=== PATIENT | male | born 1970 | race African-American/Black ===

== ENCOUNTER 2016-12-02 14:40 | Emergency (ER) | payer OTHER ==
[2016-12-02 14:46] VITALS: BP 156/67; PULSE 101; TEMP 98.6; BMI 21.1
--- NOTE | 2016-12-02 15:47 | PDOC ---
History of Present Illness - General Chief Complaint: Injury Stated Complaint: L LLEG/HIP PAIN Time Seen by Provider: 12/02/16 15:20 History Source: Patient Exam Limitations: No Limitations - History of Present Illness Initial Comments: 12/02/16 15:51 states fell 3 days ago while intoxicated - to the left side ontp hip and knee. C /O pain that is worsening causing unable to walk. Was seen at [facility] but no test were taken and only given an "aspirin" for pain. Denies head injury, denies back injury. Has no previous injuries. States is progressively become worse denies problems with bowel or bladder. Patient is homeless and is unable to obtain any pain medication including Tylenol or Motrin. 12/02/16 21:47 Occurred: reports: other (3 days) Severity: reports: moderate Pain Location: reports: lower extremity (/ pelvis) Modifying Factors: improves with: None Loss of Consciousness: no loss of consciousness Associated Symptoms (Fall): denies symptoms Past History - Travel Traveled outside of the country in the last 30 days: No Close contact w/someone who was outside of country & ill: No - Past Medical History Allergies/Adverse Reactions: Allergies Allergy/AdvReac Type Severity Reaction Status Date / Time No Known Allergies Allergy Verified 12/02/16 14:42 - Psycho/Social/Smoking Cessation Hx Suicidal Ideation: No Smoking History: Never smoked Number of Cigarettes Smoked Daily: 2 Information on smoking cessation initiated: No Hx Alcohol Use: Yes Drug/Substance Use Hx: No Trauma Specific PMHX - Complaint Specific PMHX Back Injury: No Neck Injury: No Review of Systems - Review of Systems Able to Perform ROS?: Yes Is the patient limited Estonian proficient: Yes Constitutional: Yes: See HPI, Malaise. No: Symptoms Reported, Fever HEENTM: Yes: See HPI. No: Symptoms Reported Respiratory: No: Symptoms reported Cardiac (ROS): No: Symptoms Reported Musculoskeletal: Yes: Symptoms Reported, See HPI, Joint Pain (left leg./hip), Joint Swelling, Joint Stiffness All Other Systems: Reviewed and Negative *Physical Exam - Vital Signs Last Vital Signs Temp Pulse Resp BP Pulse Ox 98.6 F 101 H 20 156/67 12/02/16 14:42 12/02/16 14:42 12/02/16 14:42 12/02/16 14:42 - Physical Exam General Appearance: Yes: Nourished, Appropriately Dressed, Apparent Distress ( unable to bear weight on left leg ), Disheveled HEENT: positive: GRACE, Normal ENT Inspection, TMs Normal, Pharynx Normal Neck: positive: Supple. negative: Tender Respiratory/Chest: positive: Lungs Clear Musculoskeletal: positive: Decreased Range of Motion, Other (ROM limited to abduction/forwad flexion due to severe pain to left upper femur). negative: Normal Inspection, CVA Tenderness, Muscle Spasm, Vertebral Tenderness Extremity: positive: Tender (2 greater trochanter of the left hip, with no obvious bruising, deformity,. Also complains of pain to his left knee although no reproduced tenderness to medial lateral aspect of this or step-offs, negative ballottement), Pelvis Stable, Other (venous stasis bilaterally ). negative: Normal Capillary Refill (sluggish ), Normal Inspection, Normal Range of Motion Integumentary: positive: Warm, Pale Neurologic: positive: compounding scaler II-XII NML intact, Fully Oriented, Alert, Normal Mood/ Affect, Normal Response, Motor Strength 5/5 Progress Note - Progress Note Progress Note: fall with hip contusion, no fx/ dx in xray- will treat with NSAIDS/ rest *DC/Admit/Observation/Transfer Diagnosis at time of Disposition: Contusion of hip, left Qualifiers: Encounter type: initial encounter Qualified Code(s): S70.02XA - Contusion of left hip, initial encounter - Discharge Dispostion Disposition: HOME Condition at time of disposition: Stable Admit: No - Patient Instructions Printed Discharge Instructions: Contusion Additional Instructions: Rest, ice to area on and off for 15 minutes 4-6 times a day Avoid heavy lifting or exercise until pain and swelling is resolved or until further directed Keep area highly elevated to reduce swelling Use splints/Valente wrap as directed Followup with orthopedist in one to 2 days if not improving, if significantly improved may wait one week for followup with orthopedist May use ibuprofen 2-200 mg tablets every 6 hours as needed for pain
[2016-12-02] MEDS ORDERED: IBUPROFEN 600 MG TABLET (FP) PO ONE ×2 (16:38→16:52)
== END 2016-12-02 16:53 | disposition home or self-care (01) ==
LOC: JERFT 14:40
DX: S70.02XA Contusion of left hip, initial encounter (principal); W19.XXXA Unspecified fall, initial encounter; Y93.89 Activity, other specified; Y92.89 Other specified places as the place of occurrence of the external cause; Y99.9 Unspecified external cause status
CPT/HCPCS: 73523-TC; 73562-TC-LT; 99281-25

== ENCOUNTER 2019-09-19 22:08 | Emergency (ER) | payer SELFPAY ==
[2019-09-19 22:20] VITALS: BMI 21.1
--- NOTE | 2019-09-19 23:02 | PDOC ---
History of Present Illness - General Chief Complaint: Alcohol intoxication Stated Complaint: INTOX Time Seen by Provider: 09/19/19 23:02 - History of Present Illness Initial Comments: 09/19/19 23:02 Mr. Mari is a 48 yo male w/ no significant pmh who presents for evaluation after being picked up by EMS for intoxication. Patient reports he has no complaints at this time. The patient denies chest pain, shortness of breath, headache and dizziness. Denies fever, chills, nausea, vomit, diarrhea and constipation. Denies dysuria, frequency, urgency and hematuria. Past History - Past Medical History Allergies/Adverse Reactions: Allergies Allergy/AdvReac Type Severity Reaction Status Date / Time No Known Allergies Allergy Verified 09/19/19 22:14 Home Medications: Ambulatory Orders NK [No Known Home Medication] 09/19/19 COPD: No - Psycho Social/Smoking Cessation Hx Smoking History: Current every day smoker Have you smoked in the past 12 months: Yes Number of Cigarettes Smoked Daily: 3 Information on smoking cessation initiated: No Hx Alcohol Use: Yes Drug/Substance Use Hx: Yes Review of Systems - Review of Systems Comments:: 09/19/19 23:02 GENERAL/CONSTITUTIONAL: No fever or chills. No weakness. HEAD, EYES, EARS, NOSE AND THROAT: No change in vision. No ear pain or discharge. No sore throat. CARDIOVASCULAR: No chest pain or shortness of breath RESPIRATORY: No cough, wheezing, or hemoptysis. GASTROINTESTINAL: No nausea, vomiting, diarrhea or constipation. GENITOURINARY: No dysuria, frequency, or change in urination. MUSCULOSKELETAL: No joint or muscle swelling or pain. No neck or back pain. SKIN: No rash NEUROLOGIC: No headache, vertigo, loss of consciousness, or change in strength/ sensation. ENDOCRINE: No increased thirst. No abnormal weight change HEMATOLOGIC/LYMPHATIC: No anemia, easy bleeding, or history of blood clots. ALLERGIC/IMMUNOLOGIC: No hives or skin allergy. *Physical Exam - Vital Signs Last Vital Signs Temp Pulse Resp BP Pulse Ox 98.2 F 92 H 18 91/56 L 100 09/19/19 22:10 09/19/19 22:10 09/19/19 22:10 09/19/19 22:10 09/19/19 22:10 - Physical Exam Comments: 09/19/19 23:02 GENERAL: Awake, alert, and fully oriented, in no acute distress HEAD: No signs of trauma, normocephalic, atraumatic EYES: PERRLA, EOMI, sclera anicteric, conjunctiva clear ENT: Auricles normal inspection, hearing grossly normal, nares patent, oropharynx clear without exudates. Moist mucosa NECK: Normal ROM, supple, no lymphadenopathy, JVD, or masses LUNGS: No distress, speaks full sentences, clear to auscultation bilaterally HEART: Regular rate and rhythm, normal S1 and S2, no murmurs, rubs or gallops, peripheral pulses normal and equal bilaterally. ABDOMEN: Soft, nontender, normoactive bowel sounds. No guarding, no rebound. No masses EXTREMITIES: Normal inspection, Normal range of motion, no edema. No clubbing or cyanosis. NEUROLOGICAL: Cranial nerves II through XII grossly intact. Normal speech, normal gait, no focal sensorimotor deficits SKIN: Warm, Dry, normal turgor, no rashes or lesions noted. ED Treatment Course - LABORATORY CBC & Chemistry Diagram: 09/19/19 23:15 09/19/19 23:15 Medical Decision Making - Medical Decision Making 09/19/19 23:11 Mr. Mari is a 48 yo male w/out significant pmh who presents for evaluation of intoxication. Upon arrival patient alert and oriented with no complaints, speaking clearly and walking with a steady gait. Will evaluate patient with basic labs and hydrate. 09/20/19 00:04 Patient labs grossly wnl as below. No concern for acute process at this time. No evidence of patient intoxication. Discharging to home. Laboratory Results - last 24 hr 09/19/19 09/19/19 23:15 23:15 WBC 5.0 RBC 4.02 Hgb 13.0 Hct 38.9 MCV 96.7 H MCH 32.3 MCHC 33.4 RDW 13.2 Plt Count 205 MPV 9.3 Absolute Neuts (auto) 2.8 Neutrophils % 56.9 Lymphocytes % 33.4 Monocytes % 8.6 Eosinophils % 0.5 Basophils % 0.6 Nucleated RBC % 0 Sodium 141 Potassium 4.5 Chloride 105 Carbon Dioxide 28 Anion Gap 8 BUN 11.6 Creatinine 0.9 Est GFR (CKD-EPI)AfAm 116.65 Est GFR (CKD-EPI)NonAf 100.64 Random Glucose 115 H Calcium 9.4 Total Bilirubin 0.6 AST 27 ALT 24 Alkaline Phosphatase 42 L Total Protein 7.1 Albumin 3.9 Alcohol, Quantitative < 3.0 Discharge - Discharge Information Problems reviewed: Yes Clinical Impression/Diagnosis: Intoxication Disposition: HOME - Follow up/Referral - Patient Discharge Instructions Patient Printed Discharge Instructions: DI for Alcohol Abuse Additional Instructions: You were evaluated today in the ER with no concerning findings and we believe you are safe for discharge. Please follow-up with primary care provider for further evaluation as needed. Return to ER if any pain, fever, chills, or other concerning symptoms. - Post Discharge Activity
--- NOTE | 2019-09-19 23:03 | PDOC ---
Attending Attestation - Resident Resident Name: Denzel Husain - ED Attending Attestation I have performed the following: I have examined & evaluated the patient, The case was reviewed & discussed with the resident, I agree w/resident's findings & plan - HPI HPI: 09/19/19 23:54 Came by EMS, because friend said that he had passed out. Pt denies this and states that he had been drinking. States that he is sober. Pt wants to go home and states that he feels fine. - Physicial Exam PE: 09/19/19 23:55 Normal exam. Agree with resident. - Medical Decision Making 09/19/19 23:55 Pt will have basic labs sent, as he has not been here in 2 years, and we need to make sure basic labs are normal, and that he has no alcohol on board before we discharge him. CBC is normal Chem and alcohol levels are pending. 09/20/19 00:04 Pt is sober and all labs are normal; he is stable for discharge home.
[2019-09-19] MEDS ORDERED: SODIUM CHLORIDE 1,000 ML IV STA (23:06)
[2019-09-19 23:26] LABS: BASO % 0.6 % (0-2.0); EOS % 0.5 % (0-4.5); HEMATOCRIT 38.9 % (35.4-49); LYMPH % 33.4 % (8-40); MCH 32.3 pg (25.7-33.7); MCHC 33.4 g/dl (32.0-35.9); MEAN CELL VOLUME 96.7 fl (80-96); MEAN PLT VOLUME 9.3 fl (7.5-11.1); MONO % 8.6 % (3.8-10.2); NEUT % 56.9 % (42.8-82.8); PLATELET COUNT 205 K/MM3 (134-434); RBC 4.02 M/mm3 (4.00-5.60); RDW 13.2 % (11.9-15.9)
[2019-09-19 23:58] LABS: ALBUMIN 3.9 g/dl (3.4-5.0); ALK PHOS 42 U/L (45-117); ANION GAP 8 MMOL/L (8-16); BILIRUBIN,TOTAL 0.6 mg/dL (0.2-1); BLOOD UREA NITROGEN 11.6 mg/dL (7-18); CALCIUM 9.4 mg/dL (8.5-10.1); CHLORIDE 105 mmol/L (98-107); CO2 28 mmol/L (21-32); CREATININE 0.9 mg/dL (0.55-1.3); GLUCOSE,RANDOM 115 mg/dL (74-106); POTASSIUM 4.5 mmol/L (3.5-5.1); SGOT/AST 27 U/L (15-37); SGPT/ALT 24 U/L (13-61); SODIUM 141 mmol/L (136-145); TOT PROT 7.1 g/dl (6.4-8.2)
[2019-09-20 00:21] VITALS: BP 126/85; PULSE 82; TEMP 98.8
== END 2019-09-20 00:26 | disposition home or self-care (01) ==
LOC: JER 22:08
PROC: 3E0337Z Introduction of Electrolytic and Water Balance Substance into Peripheral Vein, Percutaneous Approach (ICD-10-PCS; principal; 2019-09-19)
DX: F10.120 Alcohol abuse with intoxication, uncomplicated (principal); F17.210 Nicotine dependence, cigarettes, uncomplicated
CPT/HCPCS: 36415; 80053; 80307; 85025; 99282-25; J7030